=== PATIENT | female | born 1995 | race Caucasian/White ===

== ENCOUNTER 2017-02-18 08:44 | Outpatient (CLI) | payer OTHER ==
--- NOTE | 2017-02-18 21:56 | RAD ---
LEFT ANKLE 3 VIEWS: DATE: 02/18/17. FINDINGS: No definite fracture was seen. There is some mild soft tissue swelling. A line seen in the lateral malleolus really appears to be a trabecular marking on the oblique view and other views do not show anything with any assurance here. The ankle joint is normal in width and the articular surfaces ar e smooth. IMPRESSION: No definite bony finding. POS: HOME
== END 2017-02-18 08:45 | disposition home or self-care (01) ==
LOC: BURRAD 08:44
PROVIDERS: ATTEND Family Medicine
DX: M25.572 Pain in left ankle and joints of left foot (principal)

== ENCOUNTER 2017-11-16 18:06 | Emergency (ER) | payer BC, OTHER ==
[2017-11-16 18:24] LABS: Bilirubin Negative (Negative); Blood, Urine Trace (Negative); Clarity Cloudy (Clear); Glucose, Urine (Dipstick) Negative (Negative); Leukocyte Large (Negative); Nitrite Negative (Negative); Protein, Urine (Dipstick) 30 mg/dL (Neg-Trace); Urobilinogen 0.2 mg/dL (0.2-1.0); pH, Urine 5.5 (5.0-9.0)
[2017-11-16 18:25] LABS: Specific Gravity, Urine 1.022 (1.002-1.036)
[2017-11-16] MEDS ORDERED: Sulfameth/Trimethoprim DS 800-160mg TAB ONE (18:27)
[2017-11-16 18:38] LABS: Bacteria/HPF 2+ HPF (None Seen); RBC/HPF 0-3 HPF (0-3); Squamous Epithelial 0-3 HPF (0-3)
[2017-11-20 04:13] LABS: Chlamydia by PCR Not Detected (NotDetected); GC by PCR Not Detected (NotDetected)
== END 2017-11-16 18:34 | disposition home or self-care (01) ==
LOC: BURERS 18:06
DX: N39.0 Urinary tract infection, site not specified (principal)
CPT/HCPCS: 81003; 81015; 87086; 87491; 87591; 99283

== ENCOUNTER 2018-03-06 15:14 | Emergency (ER) | payer BC | END 2018-03-06 17:20 | disposition home or self-care (01) | LOC: BURERS 15:14 | DX: E86.0 Dehydration (principal); F17.210 Nicotine dependence, cigarettes, uncomplicated; Z79.899 Other long term (current) drug therapy | CPT/HCPCS: 93005; 96360 ==